=== PATIENT | female | born 1980 | race Caucasian/White ===

== ENCOUNTER 2017-05-03 07:19 | Emergency (ER) | payer BC ==
[2017-05-03 07:41] VITALS: BP 121/84
--- NOTE | 2017-05-03 08:18 | UC ---
UC General HPI - HPI Summary HPI Summary: complaint of rash that started yesterday today rash has spread to thighs, arms and back rash is itchy denies shortness of breath and but her lips feel slightly tingly told to take claritin and benadryl currently being treated for RA started on humira 2 weeks ago- last dose a week ago Dr Julian- biology intern- has appt tomorrow - History of Current Complaint Chief Complaint: UCAllergicReaction Stated Complaint: ALLERGIC REACTION Time Seen by Provider: 05/03/17 08:08 Hx Obtained From: Patient - Allergy/Home Medications Allergies/Adverse Reactions: Allergies Allergy/AdvReac Type Severity Reaction Status Date / Time No Known Allergies Allergy Verified 05/03/17 07:36 Home Medications: Home Medications Methotrexate TAB* 14 mg PO WEEKLY 05/03/17 [History Confirmed 05/03/17] Multivitamins/Minerals TAB* [Thera M Plus TAB*] 1 tab PO DAILY 05/03/17 [ History Confirmed 05/03/17] PMH/Surg Hx/FS Hx/Imm Hx Previously Healthy: No - RA - Surgical History Surgical History: Yes Surgery Procedure, Year, and Place: Bariatric surgery Jun 2015 - Social History Occupation: Employed Full-time Lives: With Family Alcohol Use: Occasionally Alcohol Amount: wine Substance Use Type: None Smoking Status (MU): Never Smoked Tobacco - Immunization History Most Recent Influenza Vaccination: 2012 Most Recent Tetanus Shot: UNKNOWN Most Recent Pneumonia Vaccination: NONE Review of Systems Constitutional: Negative Skin: Rash Eyes: Negative ENT: Negative Respiratory: Negative Cardiovascular: Negative Gastrointestinal: Negative Genitourinary: Negative Motor: Negative Neurovascular: Negative Musculoskeletal: Negative Neurological: Negative Psychological: Negative All Other Systems Reviewed And Are Negative: Yes Physical Exam Triage Information Reviewed: Yes Appearance: No Pain Distress, Well-Nourished Vital Signs: Initial Vital Signs Temp 99.5 F 05/03/17 07:38 Pulse 100 05/03/17 07:38 Resp 16 05/03/17 07:38 BP 121/84 05/03/17 07:38 Pulse Ox 100 05/03/17 07:38 Vital Signs Reviewed: Yes Eyes: Positive: Conjunctiva Clear ENT: Positive: Pharynx normal, TMs normal Neck: Positive: No Lymphadenopathy Respiratory: Positive: Lungs clear, Normal breath sounds, No respiratory distress, No accessory muscle use Cardiovascular: Positive: RRR, Pulses Normal Abdomen Description: Positive: Nontender, Soft Bowel Sounds: Positive: Present Musculoskeletal: Positive: No Edema Neurological: Positive: Alert Psychological Exam: Normal Skin: Positive: rashes - thighs,arms, back abdomen- erythematousraised rash Course/Dx - Differential Dx - Multi-Symptom Differential Diagnoses: Other - allergis reaction, rash -drug exanthum Provider Diagnoses: drug exanthem rash Discharge - Discharge Plan Condition: Stable Disposition: HOME Prescriptions: predniSONE TAB* [Deltasone TAB*] 50 mg PO DAILY #5 tab Patient Education Materials: Acute Rash (ED) Referrals: Valery Kebede MD [Primary Care Provider] - Additional Instructions: Please start medication as directed Increase fluids and rest please followup with biology intern Please review your discharge instructions. If your symptoms do not improve please call your primary care provider or return to urgent care.
== END 2017-05-03 08:33 | disposition home or self-care (01) ==
LOC: UCEAST 07:19
DX: L27.0 Generalized skin eruption due to drugs and medicaments taken internally (principal); T39.4X5A Adverse effect of antirheumatics, not elsewhere classified, initial encounter; M06.9 Rheumatoid arthritis, unspecified; Z98.84 Bariatric surgery status
CPT/HCPCS: 99212; G0463